=== PATIENT | female | born 1960 | race African-American/Black ===

== ENCOUNTER 2017-01-20 11:31 | Emergency (ER) | payer SELFPAY ==
[~2017-01-20] VITALS: Ht 160 cm; Wt 127.0 kg
[2017-01-20] MEDS ORDERED: LOSA1TAB16 PO (12:31)
--- NOTE | 2017-01-20 12:31 | PHYS DOC ---
Past Medical History Past Medical History: High Cholesterol, Hypertension, Sciatica Past Surgical History: Additional Past Surgical Histo: fibroid removed from breast Additional Information: 6 cigarettes daily Alcohol Use: None Drug Use: None Adult General Chief Complaint Chief Complaint: MEDICATION REFILL [facility] HPI Patient is a 57 year old female who presents for refill of her blood pressure medication. She has been out of her Hyzaar for 4 days. She has been unable to schedule an appointment with her PCP due to a busy work schedule. She denies any chest pain, shortness of breath, headache, weakness, or numbness. Upon arrival to the emergency department today her blood pressure is 162/94 and was 141/75 on recheck. Her PCP is Luz Elena APRN. Review of Systems Review of Systems Constitutional: Denies fever or chills. [] Eyes: Denies change in visual acuity, redness, or eye pain. [] HENT: Denies ear pain, nasal congestion or sore throat. [] Respiratory: Denies cough or shortness of breath. [] Cardiovascular: Denies chest pain, palpitations or edema. [] GI: Denies abdominal pain, nausea, vomiting, bloody stools or diarrhea. [] : Denies dysuria, hematuria or urinary frequency. [] Musculoskeletal: Denies back pain or joint pain. [] Integument: Denies rash or skin lesions. [] Neurologic: Denies headache, focal weakness or sensory changes. [] Endocrine: Denies polyuria or polydipsia. [] Psych: Denies anxiety or depression. [] All systems reviewed and negative unless otherwise stated in the HPI. Allergies Allergies Allergies Coded Allergies Type Severity Reaction Last Updated Verified No Known Drug Allergies 12/28/15 No Physical Exam Physical Exam Constitutional: Well developed, well nourished, no acute distress, non-toxic appearance. [] HENT: Normocephalic, atraumatic, oropharynx moist. [] Eyes: PERRLA, EOMI, conjunctiva normal, no discharge. [] Neck: Normal range of motion, no tenderness, supple, no stridor. [] Cardiovascular: Heart rate regular rhythm, no murmur. [] Lungs & Thorax: Bilateral breath sounds clear to auscultation without wheezes, rales, or rhonchi. [] Skin: Warm, dry, no erythema, no rash. [] Extremities: No tenderness, ROM intact, no edema. Distal pulses equal bilaterally. [] Neurologic: Alert and oriented X 3, normal motor function, normal sensory function, no focal deficits noted. CN II-XII grossly intact. Psychologic: Affect normal, judgement normal, mood normal. [] Current Patient Data Vital Signs Vital Signs Date Time Temp Pulse Resp B/P Pulse Ox O2 Delivery O2 Flow Rate FiO2 01/20/17 12:36 141/75 01/20/17 11:40 98.1 92 20 95 98.1 EKG EKG [] Radiology/Procedures Radiology/Procedures [] Course & Med Decision Making Course & Med Decision Making Pertinent Labs and Imaging studies reviewed. (See chart for details) [] Dragon Disclaimer Dragon Disclaimer This electronic medical record was generated, in whole or in part, using a voice recognition dictation system. Departure Departure Impression: Primary Impression: Medication refill Disposition: HOME, SELF-CARE Condition: STABLE Referrals: LUZ ELENA APRN (PCP) Patient Instructions: Medication Refill, Emergency Department Additional Instructions: You have been given a prescription for 1 month of your blood pressure medication. Please schedule an appointment with your primary care provider as soon as possible for a refill. Return to the emergency department if you have any new or concerning symptoms. Scripts Losartan/Hydrochlorothiazide (Losartan-Hctz 50-12.5 Mg Tab)1 Each Tablet1 Tab PO BID 30 Days Prov:BLANCA GUERRA 01/20/17 BLANCA GUERRA Jan 20, 2017 12:31
[2017-01-20 12:36] VITALS: BP 141/75
== END 2017-01-20 12:38 | disposition home or self-care (01) ==
LOC: ER 11:31
DX: Z76.0 Encounter for issue of repeat prescription (principal); I10 Essential (primary) hypertension; E78.00 Pure hypercholesterolemia, unspecified; F17.200 Nicotine dependence, unspecified, uncomplicated
CPT/HCPCS: 99283

== ENCOUNTER 2017-06-03 10:50 | Emergency (ER) | payer SELFPAY ==
[~2017-06-03] VITALS: Ht 160 cm; Wt 122.5 kg
[~2017-06-03 10:50] MED LIST: LOSA1TAB16 PO
[2017-06-03 11:01] VITALS: BP 172/84
[2017-06-03] MEDS ORDERED: LOSA1TAB16 PO (11:18)
--- NOTE | 2017-06-03 11:18 | PHYS DOC ---
Past Medical History Past Medical History: High Cholesterol, Hypertension, Sciatica Past Surgical History: , Other Additional Past Surgical Histo: fibroid removed from breast Alcohol Use: None Drug Use: None Adult General Chief Complaint Chief Complaint: MEDICATION REFILL HPI HPI Patient is a 57 year old female with history of hypertension and smoking who presents today requesting a refill of her blood pressure medicine. Patient states she takes losartan/HCTZ. She ran out of the medication a couple days ago. She does have a PCP. She states she tried following up in the office and they wanted $300 just to be seen. She has no medical insurance. Patient denies any chest pain or shortness of breath. Denies any headache. Review of Systems Review of Systems Constitutional: Denies fever or chills [] Eyes: Denies change in visual acuity, redness, or eye pain [] HENT: Denies nasal congestion or sore throat [] Respiratory: Denies cough or shortness of breath [] Cardiovascular: Medication refill GI: Denies abdominal pain, nausea, vomiting, bloody stools or diarrhea [] : Denies dysuria or hematuria [] Musculoskeletal: Denies back pain or joint pain [] Integument: Denies rash or skin lesions [] Neurologic: Denies headache, focal weakness or sensory changes [] Endocrine: Denies polyuria or polydipsia [] Allergies Allergies Allergies Coded Allergies Type Severity Reaction Last Updated Verified No Known Drug Allergies 12/28/15 No Physical Exam Physical Exam Constitutional: Well developed, well nourished, no acute distress, non-toxic appearance. [] HENT: Normocephalic, atraumatic, bilateral external ears normal, oropharynx moist, no oral exudates, nose normal. [] Eyes: PERRLA, EOMI, conjunctiva normal, no discharge. [] Neck: Normal range of motion, no tenderness, supple, no stridor. [] Cardiovascular:Heart rate regular rhythm, no murmur [] Lungs & Thorax: Bilateral breath sounds clear to auscultation [] Abdomen: Bowel sounds normal, soft, no tenderness, no masses, no pulsatile masses. [] Skin: Warm, dry, no erythema, no rash. [] Back: No tenderness, no CVA tenderness. [] Extremities: No tenderness, no cyanosis, no clubbing, ROM intact, no edema. [] Neurologic: Alert and oriented X 3, normal motor function, normal sensory function, no focal deficits noted. [] Psychologic: Affect normal, judgement normal, mood normal. [] Current Patient Data Vital Signs Vital Signs Date Time Temp Pulse Resp B/P (MAP) Pulse Ox O2 Delivery O2 Flow Rate FiO2 06/03/17 11:01 98.3 77 20 95 Room Air 98.3 EKG EKG [] Radiology/Procedures Radiology/Procedures [] Course & Med Decision Making Course & Med Decision Making Pertinent Labs and Imaging studies reviewed. (See chart for details) Patient is in the ED for medication refill for losartan/HCTZ. Blood pressure is 172/83 , patient has no cardiac or neurological symptoms. She has a PCP but not able to follow-up because they asked for $300 upfront. She has no medical insurance. She was given a refill and provided a clinic list. I talked to patient about smoking cessation. We agreed she is going to cut back on her smoking. Dragon Disclaimer Dragon Disclaimer This electronic medical record was generated, in whole or in part, using a voice recognition dictation system. Departure Departure Impression: Primary Impression: Medication refill Additional Impressions: Hypertension Smoking addiction Disposition: HOME, SELF-CARE Condition: STABLE Referrals: LUISITO ELENA APRN (PCP) Follow-up with your doctor or doctor from the list provided Patient Instructions: Hypertension, Smoking Cessation Additional Instructions: You were seen for refill of your blood pressure medication. Take them as prescribed. Kindly follow-up with your primary care doctor from the list provided as soon as you can. Scripts Losartan/Hydrochlorothiazide (LOSARTAN-HCTZ 50-12.5 MG TAB) 1 Each Tablet 1 TAB PO DAILY, #90 TAB 1 Refill Prov: JASMIN BERUMEN APRN 06/03/17 Problem Qualifiers Additional Impressions: Hypertension Hypertension type: unspecified secondary hypertension Qualified Codes: I15.9 - Secondary hypertension, unspecified ZENIAKhalifJASMIN APRN Jun 03, 2017 11:18
== END 2017-06-03 11:25 | disposition home or self-care (01) ==
LOC: ER 10:50
DX: Z76.0 Encounter for issue of repeat prescription (principal); I10 Essential (primary) hypertension; E78.00 Pure hypercholesterolemia, unspecified; F17.200 Nicotine dependence, unspecified, uncomplicated
CPT/HCPCS: 99283

== ENCOUNTER 2018-07-24 10:45 | Emergency (ER) | payer SELFPAY ==
[~2018-07-24] VITALS: Ht 160 cm; Wt 117.9 kg
[~2018-07-24 10:45] MED LIST changes: -LOSA1TAB16 PO; +LOSA1TAB19 PO
[2018-07-24 10:50] VITALS: BP 188/89
[2018-07-24] MEDS ORDERED: LOSA1TAB19 PO (12:00)
--- NOTE | 2018-07-24 12:00 | PHYS DOC ---
Past Medical History Past Medical History: High Cholesterol, Hypertension, Sciatica Past Surgical History: , Other Additional Past Surgical Histo: fibroid removed from breast Alcohol Use: None Drug Use: None General Pediatric Assessment History of Present Illness History of Present Illness Patient is a female who presents with request for medication refill. Patient states she has history of hypertension and ran out of her losartan/HCTZ. 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 Patient denies any symptoms. Historian was the patient and mother []. Review of Systems Review of Systems Constitutional: Denies fever or chills [] Eyes: Denies change in visual acuity, redness, or eye pain [] HENT: Denies nasal congestion or sore throat [] Respiratory: Denies cough or shortness of breath [] Cardiovascular: Blood pressure medication refill GI: Denies abdominal pain, nausea, vomiting, bloody stools or diarrhea [] : Denies dysuria or hematuria [] Musculoskeletal: Denies back pain or joint pain [] Integument: Denies rash or skin lesions [] Neurologic: Denies headache, focal weakness or sensory changes [] All other systems were reviewed and found to be within normal limits, except as documented in this note. Allergies Allergies Allergies Coded Allergies Type Severity Reaction Last Updated Verified No Known Drug Allergies 12/28/15 No Physical Exam Physical Exam Constitutional: Well developed, well nourished, no acute distress, non-toxic appearance, positive interaction, playful. [] HENT: Normocephalic, atraumatic, bilateral external ears normal, oropharynx moist, no oral exudates, nose normal. [] Eyes: PERRLA, conjunctiva normal, no discharge. [] Neck: Normal range of motion, no tenderness, supple, no stridor. [] Cardiovascular: Normal heart rate, normal rhythm, no murmurs, no rubs, no gallops. [] Thorax and Lungs: Normal breath sounds, no respiratory distress, no wheezing, no chest tenderness, no retractions, no accessory muscle use. [] Abdomen: Bowel sounds normal, soft, no tenderness, no masses [] Skin: Warm, dry, no erythema, no rash. [] Back: No tenderness, no CVA tenderness. [] Extremities: Intact distal pulses, no tenderness, no cyanosis, ROM intact, no edema, no deformities. [] Neurologic: Alert and interactive, normal motor function, normal sensory function, no focal deficits noted. [] Vital Signs Vital Signs Date Time Temp Pulse Resp B/P (MAP) Pulse Ox O2 Delivery O2 Flow Rate FiO2 07/24/18 10:50 98.1 80 16 188/89 (122) 94 Room Air 98.1 Radiology/Procedures Radiology/Procedures [] Course & Med Decision Making Course & Med Decision Making Pertinent Labs and Imaging studies reviewed. (See chart for details) This is a 58-year-old female patient presenting to the ED today with request for medication refill losartan/HCTZ for her BP. See history of present illness. Prescription given. He should follow-up with her own PCP as soon as she can get her medical insurance establish Dragon Disclaimer Dragon Disclaimer This electronic medical record was generated, in whole or in part, using a voice recognition dictation system. Departure Departure Impression: Primary Impression: Medication refill Additional Impression: Hypertension Disposition: 01 HOME, SELF-CARE Condition: STABLE Referrals: LUISITO ELENA APRN (PCP) follow up as soon as you can Patient Instructions: Hypertension, [id number] Additional Instructions: We refilled your blood pressure medications, contact your primary care doctor and follow-up as soon as possible. Scripts Losartan/Hydrochlorothiazide (LOSARTAN-HCTZ 50-12.5 MG TAB) 1 Each Tablet 1 TAB PO DAILY, #90 TAB 1 Refill Prov: JASMIN BERUMEN APRN 07/24/18 Problem Qualifiers Additional Impression: Hypertension Hypertension type: unspecified Qualified Codes: I10 - Essential (primary) hypertension JASMIN BERUMEN APRN Jul 24, 2018 12:00
== END 2018-07-24 12:00 | disposition home or self-care (01) ==
LOC: ER 10:45
DX: I10 Essential (primary) hypertension (principal); E78.00 Pure hypercholesterolemia, unspecified; Z98.890 Other specified postprocedural states
CPT/HCPCS: 99283

== ENCOUNTER 2019-04-03 16:23 | Emergency (ER) | payer MEDICAID ==
[~2019-04-03] VITALS: Ht 160 cm; Wt 129.3 kg
[2019-04-03 16:58] VITALS: BP 163/79
[2019-04-03] MEDS ORDERED: HYDR-3164 PO (17:00)
[2019-04-03] MEDS ORDERED: DICL50TA4 PO (17:00)
[2019-04-03] MEDS ORDERED: KETOROLAC 60 MG/2 ML VIAL. IM ONE (17:00)
[2019-04-03] MEDS ORDERED: diazePAM 5 MG TABLET PO ONE (17:00)
[2019-04-03] MEDS ORDERED: CYCL10TA2 PO (17:00)
[2019-04-03] MEDS ORDERED: MORPHINE SULFATE 10 MG/ML VIAL. IM ONE (17:00)
--- NOTE | 2019-04-03 17:01 | PHYS DOC ---
Past Medical History Past Medical History: High Cholesterol, Hypertension, Sciatica Past Surgical History: , Other Additional Past Surgical Histo: fibroid removed from breast Alcohol Use: None Drug Use: None Adult General Chief Complaint Chief Complaint: LOWER EXT PAIN HPI HPI Patient is a 59 year old female with history of hypertension, high cholesterol, sciatica, who presents to the ED today complaining of 10 out of 10 exacerbation of sciatic nerve pain. Patient describes the pain as sharp and intermittent worse on weight-bearing, she states the pain is radiating to the left lower extremity. She states occasionally her toes get numb. She states the toes. The numbness is not new. She states she's not had a flareup of her sciatica for years. Denies any loss of bowel bladder function. She is also complaining of bilateral knee pain. She states her knees keep popping in and out though this has been going on for a while. Denies any known injury. She states she believes she has a bruise to the left knee. No bruise was noted on physical exam. Review of Systems Review of Systems Constitutional: Denies fever or chills [] : Denies dysuria or hematuria [] Musculoskeletal: Reports left low back pain radiating to the left lower extremity, reports bilateral knee pain and pain. Integument: Denies rash or skin lesions [] Neurologic: Denies headache, focal weakness or sensory changes [] All other systems were reviewed and found to be within normal limits, except as documented in this note. Current Medications Current Medications Current Medications Medications (Trade) Dose Ordered Sig/Alfie Start Time Stop Time Status Last Admin Dose Admin Diazepam (Valium) 5 mg 1X ONCE 04/03/19 17:00 04/03/19 17:01 UNV Ketorolac Tromethamine (Toradol Im) 60 mg 1X ONCE 04/03/19 17:00 04/03/19 17:01 UNV Morphine Sulfate (Morphine Sulfate) 5 mg 1X ONCE 04/03/19 17:00 04/03/19 17:01 UNV Allergies Allergies Allergies Coded Allergies Type Severity Reaction Last Updated Verified No Known Drug Allergies 12/28/15 No Physical Exam Physical Exam Constitutional: Well developed, well nourished, no acute distress, non-toxic appearance. [] Abdomen: Bowel sounds normal, soft, no tenderness, no masses, no pulsatile masses. [] Skin: Warm, dry, no erythema, no rash. [] Back: Diffuse paraspinal muscle tenderness the left lumbar spine, no midline lumbar spine tenderness, no CVA tenderness. [] Extremities: No tenderness, no cyanosis, no clubbing, ROM intact, no edema. No bruising noted to bilateral knees. Neurologic: Alert and oriented X 3, normal motor function, normal sensory function, no focal deficits noted. [] Psychologic: Affect normal, judgement normal, mood normal. [] EKG EKG [] Radiology/Procedures Radiology/Procedures [] Course & Med Decision Making Course & Med Decision Making Pertinent Labs and Imaging studies reviewed. (See chart for details) This is a 59-year-old female patient presenting to the ED today with exacerbation of bilateral knee pain and sciatica. Patient is overweight. We discussed weight loss measures. Provided orthopedic doctor for follow-up for chronic knee pain. She has a PCP she'll follow-up for sciatic pain. She has no cauda equina syndrome symptoms. She has no injury. She was discharged to home. Dragon Disclaimer Dragon Disclaimer This electronic medical record was generated, in whole or in part, using a voice recognition dictation system. Departure Departure Impression: Primary Impression: Sciatica of left side Additional Impression: Chronic knee pain Disposition: HOME, SELF-CARE Condition: STABLE Referrals: LUISITO ELENA APRN (PCP) follow up in 1-2 weeks AMADOR GARVEY MD follow up in 2 weeks Patient Instructions: Sciatica with [facility] Additional Instructions: He was evaluated in the emergency room for pain. Try to ice and elevate the affected areas. Take the prescribed medications as ordered. Follow-up with your primary care doctor as well as the orthopedic doctor provided in 1-2 weeks. Scripts Diclofenac Sodium (DICLOFENAC SODIUM) 50 Mg Tablet. 1 TAB PO BID, #20 TAB 0 Refills Prov: JASMIN BERUMEN APRN 04/03/19 Cyclobenzaprine Hcl (CYCLOBENZAPRINE HCL) 10 Mg Tablet 1 TAB PO TID, #30 TAB Prov: JASMIN BERUMEN APRN 04/03/19 Hydrocodone/Apap 5-325 (NORCO 5-325 TABLET) 1 Each Tablet 1 TAB PO Q6HRS, #10 TAB Prov: JASMIN BERUMEN APRN 04/03/19 Problem Qualifiers Additional Impression: Chronic knee pain Laterality: bilateral Qualified Codes: M25.561 - Pain in right knee; M25.562 - Pain in left knee; G89.29 - Other chronic pain JASMIN BERUMEN APRN Apr 03, 2019 17:01
== END 2019-04-03 17:16 | disposition home or self-care (01) ==
LOC: ER 16:23
DX: M54.42 Lumbago with sciatica, left side (principal); G89.29 Other chronic pain; M25.561 Pain in right knee; M25.562 Pain in left knee; I10 Essential (primary) hypertension; E78.00 Pure hypercholesterolemia, unspecified
CPT/HCPCS: 96372; 99284; J1885; J2270

== ENCOUNTER 2019-09-15 16:30 | Emergency (ER) | payer SELFPAY ==
[~2019-09-15] VITALS: Ht 160 cm; Wt 122.5 kg
[~2019-09-15 16:30] MED LIST changes: +CYCL10TA2 PO; +DICL50TA4 PO; +HYDR-3164 PO; +NAPR-695 PO
[2019-09-15] MEDS ORDERED: NAPROXEN 500 MG TABLET PO STA (17:19)
[2019-09-15] MEDS ORDERED: HYDROcodone/APAP 5/325MG 1 TAB TABLET PO ONE (17:30)
[2019-09-15] MEDS ORDERED: CYCLOBENZAPRINE 10 MG TABLET. PO ONE (17:30)
[2019-09-15] MEDS ORDERED: METH4TAB2 PO (17:50)
[2019-09-15] MEDS ORDERED: GABA300C18 PO (17:50)
[2019-09-15] MEDS ORDERED: CYCL10TA2 PO (17:50)
[2019-09-15] MEDS ORDERED: HYDR-3164 PO (17:50)
[2019-09-15] MEDS ORDERED: DICL50TA2 PO (17:50)
--- NOTE | 2019-09-15 17:50 | PHYS DOC ---
Past Medical History Past Medical History: Arthritis, High Cholesterol, Hypertension, Sciatica Past Surgical History: , Other Additional Past Surgical Histo: fibroid removed from breast Alcohol Use: None Drug Use: None Adult General Chief Complaint Chief Complaint: LOWER BACK PAIN OR INJURY HPI HPI Patient is a 59 year old female with history of hypertension, high cholesterol, sciatica, who presents to the ED today complaining of mild to moderate bilateral low back pain radiating to bilateral lower extremities that began a week ago. Patient denies any trauma. States the pain is worse when she is sitting on her buttocks. She states she's been trying [id number] remedies with no relief. Review of Systems Review of Systems Constitutional: Denies fever or chills [] GI: Denies abdominal pain, nausea, vomiting, bloody stools or diarrhea [] : Denies dysuria or hematuria [] Musculoskeletal: Reports low back pain Integument: Denies rash or skin lesions [] Neurologic: Denies headache, focal weakness or sensory changes [] All other systems were reviewed and found to be within normal limits, except as documented in this note. Current Medications Current Medications Current Medications Medications (Trade) Dose Ordered Sig/Alfie Start Time Stop Time Status Last Admin Dose Admin Acetaminophen/ Hydrocodone Bitart (Lortab 5/325) 2 tab 1X ONCE 09/15/19 17:30 09/15/19 17:31 DC 09/15/19 17:30 2 TAB Cyclobenzaprine HCl (Flexeril) 10 mg 1X ONCE 09/15/19 17:30 09/15/19 17:31 DC 09/15/19 17:30 10 MG Naproxen (Naprosyn) 500 mg 1X STAT 09/15/19 17:19 09/15/19 17:21 DC 09/15/19 17:30 500 MG Allergies Allergies Allergies Coded Allergies Type Severity Reaction Last Updated Verified No Known Drug Allergies 12/28/15 No Physical Exam Physical Exam Constitutional: Well developed, well nourished, no acute distress, non-toxic appearance. [] Abdomen: Bowel sounds normal, soft, no tenderness, no masses, no pulsatile masses. [] Skin: Warm, dry, no erythema, no rash. [] Back: Patient unable to sit on her buttocks. Currently kneeling on the bed. Diffuse tenderness to bilateral lumbar spine, no midline lumbar spine Tenderness, no CVA tenderness. [] Extremities: No tenderness, no cyanosis, no clubbing, ROM intact, no edema. [] Neurologic: Alert and oriented X 3, normal motor function, normal sensory function, no focal deficits noted. [] Psychologic: Affect normal, judgement normal, mood normal. [] Current Patient Data Vital Signs Vital Signs Date Time Temp Pulse Resp B/P (MAP) Pulse Ox O2 Delivery O2 Flow Rate FiO2 09/15/19 16:59 98.0 93 18 169/77 (107) 96 Room Air 98.0 EKG EKG [] Radiology/Procedures Radiology/Procedures [] Course & Med Decision Making Course & Med Decision Making Pertinent Labs and Imaging studies reviewed. (See chart for details) This is a 59-year-old female patient presenting to the ED today with exacerbation of low back pain with sciatica. Patient was discharged to home. Follow-up with the PCP in 1-2 weeks. Dragon Disclaimer Dragon Disclaimer This electronic medical record was generated, in whole or in part, using a voice recognition dictation system. Departure Departure Impression: Primary Impression: Lumbago with sciatica, left side Additional Impression: Lumbago with sciatica, right side Disposition: HOME, SELF-CARE Condition: STABLE Referrals: LUISITO ELENA APRN (PCP) follow up next week Patient Instructions: Sciatica with [facility] Additional Instructions: You were evaluated in the emergency room for back pain with sciatica. Please follow-up with your primary care doctor in the course of next week. Scripts Diclofenac Potassium (DICLOFENAC POTASSIUM) 50 Mg Tablet 1 TAB PO BID, #20 TAB 1 Refill Prov: JASMIN BERUMEN APRN 09/15/19 Methylprednisolone (MEDROL) 4 Mg Tab.ds.pk 1 PKG PO UD, #1 PKG Prov: JASMIN BERUMEN APRN 09/15/19 Gabapentin (GABAPENTIN ) 300 Mg Capsule 300 MG PO TID for NEUROGENIC PAIN, #30 CAP Prov: JASMIN BERUMEN APRN 09/15/19 Hydrocodone/Apap 5-325 (NORCO 5-325 TABLET) 1 Each Tablet 1 TAB PO Q6HRS, #20 TAB Prov: JASMIN BERUMEN APRN 09/15/19 Cyclobenzaprine Hcl (CYCLOBENZAPRINE HCL) 10 Mg Tablet 1 TAB PO TID, #30 TAB Prov: MUTJASMIN LÓPEZ [employer] 09/15/19 Problem Qualifiers Primary Impression: Lumbago with sciatica, left side Chronicity: acute Back pain laterality: left Qualified Codes: M54.42 - Lumbago with sciatica, left side Additional Impression: Lumbago with sciatica, right side Chronicity: acute Back pain laterality: right Qualified Codes: M54.41 - Lumbago with sciatica, right side HANSJASMIN LÓPEZ MOT[employer] TE[employer]ER Sep 15, 2019 17:50
[2019-09-15 18:05] VITALS: BP 152/75
== END 2019-09-15 18:10 | disposition home or self-care (01) ==
LOC: ER 16:30
DX: M54.42 Lumbago with sciatica, left side (principal); M54.41 Lumbago with sciatica, right side; M19.90 Unspecified osteoarthritis, unspecified site; E78.00 Pure hypercholesterolemia, unspecified; I10 Essential (primary) hypertension; Z98.890 Other specified postprocedural states; Z90.89 Acquired absence of other organs
CPT/HCPCS: 99284

== ENCOUNTER 2019-10-08 16:41 | Emergency (ER) | payer SELFPAY ==
[~2019-10-08] VITALS: Ht 160 cm; Wt 127.0 kg
[~2019-10-08 16:41] MED LIST changes: +DICL50TA2 PO; +GABA300C18 PO; +METH4TAB2 PO
[2019-10-08 17:40] VITALS: BP 165/84
[2019-10-08] MEDS ORDERED: LOSA1TAB19 PO (18:33)
--- NOTE | 2019-10-08 18:36 | PHYS DOC ---
Past Medical History Past Medical History: Arthritis, High Cholesterol, Hypertension, Sciatica Past Surgical History: , Other Additional Past Surgical Histo: fibroid removed from breast Alcohol Use: None Drug Use: None Adult General Chief Complaint Chief Complaint: MEDICATION REFILL HPI HPI Patient is a 59 year old female who presents with been out of her losartan for the last 3 weeks. She states that her primary care provider moved to [place] and is too far for her to go. Patient denies chest pain, headache, dizziness, swelling, vision changes, abdominal pain, nausea, vomiting, shortness of air, numbness or tingling, weakness. She denies any pain. Review of Systems Review of Systems Constitutional: Denies fever or chills. Out of blood pressure medications. [] All other systems were reviewed and found to be within normal limits, except as documented in this note. Allergies Allergies Allergies Coded Allergies Type Severity Reaction Last Updated Verified No Known Drug Allergies 12/28/15 No Physical Exam Physical Exam Constitutional: Well developed, well nourished, no acute distress, non-toxic appearance. [] HENT: Normocephalic, atraumatic, bilateral external ears normal, oropharynx moist, no oral exudates, nose normal. [] Eyes: PERRLA, EOMI, conjunctiva normal, no discharge. [] Neck: Normal range of motion, no tenderness, supple, no stridor. [] Cardiovascular:Heart rate regular rhythm, no murmur [] Lungs & Thorax: Bilateral breath sounds clear to auscultation [] Abdomen: Bowel sounds normal, soft, no tenderness, no masses, no pulsatile masses. [] Skin: Warm, dry, no erythema, no rash. [] Back: No tenderness, no CVA tenderness. [] Extremities: No tenderness, no cyanosis, no clubbing, ROM intact, no edema. [] Neurologic: Alert and oriented X 3, normal motor function, normal sensory function, no focal deficits noted. [] Psychologic: Affect normal, judgement normal, mood normal. Normal Physical Exam[] EKG EKG [] Radiology/Procedures Radiology/Procedures [] Course & Med Decision Making Course & Med Decision Making Lungs are clear to auscultation all lobes. Patient's blood pressure is currently 151/84. No extremity swelling. Alert and oriented. Ambulatory with steady gait the patient uses a cane. PERRLA. Speaks in full clear sentences. Skin pink warm and dry. Patient states that she takes losartan 50/12.5mg daily. Patient is given a primary care pamphlet for [facility]. Chelsy Disclaimer Chelsy Disclaimer This electronic medical record was generated, in whole or in part, using a voice recognition dictation system. Departure Departure Impression: Primary Impression: Medication refill Disposition: HOME, SELF-CARE Condition: STABLE Referrals: LUISITO ELENA APRN (PCP) Patient Instructions: Medication Refill, Emergency Department Additional Instructions: Follow-up with a primary care provider seems possible. Take medications as p rescribed. Scripts Losartan/Hydrochlorothiazide (LOSARTAN-HCTZ 50-12.5 MG TAB) 1 Each Tablet 1 TAB PO DAILY, #30 TAB 0 Refills Prov: SOFIYA RILEY APRN 10/08/19 SOFIYA RILEY APRN Oct 08, 2019 18:36
== END 2019-10-08 18:55 | disposition home or self-care (01) ==
LOC: ER 16:41
DX: I10 Essential (primary) hypertension (principal); M19.90 Unspecified osteoarthritis, unspecified site; E78.00 Pure hypercholesterolemia, unspecified; Z98.890 Other specified postprocedural states; Z76.0 Encounter for issue of repeat prescription
CPT/HCPCS: 99283

== ENCOUNTER 2019-12-28 09:38 | Emergency (ER) | payer SELFPAY ==
[~2019-12-28] VITALS: Ht 160 cm; Wt 129.6 kg
--- NOTE | 2019-12-28 10:39 | PHYS DOC ---
Past Medical History Past Medical History: Arthritis, High Cholesterol, Hypertension, Sciatica (FAMILIA MASON APRN) Past Surgical History: , Other Additional Past Surgical Histo: fibroid removed from breast (FAMILIA MASON APRN) Smoking Status: Current Every Day Smoker Alcohol Use: None Drug Use: None (FAMILIA MASON APRN) Adult General Chief Complaint Chief Complaint: MEDICATION REFILL [facility] HPI Patient is a 59 year old female who presents for medication refill. Patient states she's been out of her losartan 12.5 mg blood pressure medicine for last week. Her blood pressures 150/82 on arrival. Patient states she is not gone to her doctor because her doctor moved from [place] to [place]. States that she needs to find a new doctor. Denies any other symptoms. Complete ROS were reviewed and found to be within normal limits, except as documented in the HPI (FAMILIA MASON APRN) Allergies Allergies Allergies Coded Allergies Type Severity Reaction Last Updated Verified No Known Drug Allergies 12/28/15 No (ARTIS OLIVAS MD) Physical Exam Physical Exam Constitutional: Well developed, well nourished, no acute distress, non-toxic appearance. [] HENT: Normocephalic, atraumatic, bilateral external ears normal, oropharynx moist, no oral exudates, nose normal. [] Neurologic: Alert and oriented X 3, normal motor function, normal sensory function, no focal deficits noted. [] Psychologic: Affect normal, judgement normal, mood normal. [] (FAMILIA MASON APRN) Current Patient Data Vital Signs Vital Signs Date Time Temp Pulse Resp B/P (MAP) Pulse Ox O2 Delivery O2 Flow Rate FiO2 12/28/19 10:21 98.3 88 22 150/82 (104) 95 Room Air 98.3 (ARTIS OLIVAS MD) EKG EKG [] (FAMILIA MASON APRN) Radiology/Procedures Radiology/Procedures [] (FAMILIA MASON APRN) Course & Med Decision Making Course & Med Decision Making Pertinent Labs and Imaging studies reviewed. (See chart for details) I had extensive discussion with this patient about the importance of finding a primary care doctor. I discussed the patient that because she has a doctor he's been taking care of of her. It is better medical care for that doctor to be the one to refill her prescription. I discussed with her that if that doctor is to far away that she should find a new primary care doctor. Patient states that she does not want to go see a primary care doctor and follow up. A medical screening exam was performed on this patient and the patient does not appear to be having a medical emergency. Her symptoms are not of sufficient severity and within reasonable medical probability it is unlikely the absence of immediate medical attention would result in placing the health of the individual (or, with respect to a woman, the health of the woman or her unborn child) in serious jeopardy, serious impairment to bodily functions, or serious dysfunction of any bodily organ or part. If , the patient is not in labor (FAMILIA MASON APRN) Course & Med Decision Making ER PHYSICIAN ATTENDING NOTE: I have personally seen and examined the patient, and agree with the history, physical exam, and plan, as documented by mid-level provider. Patient has no complaints at this time. She mainly requests a refill of her blood pressure medication, being in between primary care providers at this time. She has been out of her blood pressure medication for a week, has been on losartan/HCTZ 50-12.5 mg for 3 years. Patient will be given resources for local physicians. (ARTIS OLIVAS MD) Dragon Disclaimer Dragon Disclaimer This electronic medical record was generated, in whole or in part, using a voice recognition dictation system. (FAMILIA MASON APRN) Departure Departure Impression: Primary Impression: Encounter for medical screening examination Additional Impressions: Medication refill Hypertension Disposition: 01 HOME, SELF-CARE Condition: STABLE Referrals: NO PCP (PCP) Patient Instructions: Medication Refill, Emergency Department Additional Instructions: Thank you for visiting [facility]. We appreciate you trusting us with your care. If any additional problems come up don't hesitate to return to [facility]. Please follow up with your primary care provider so they can plan additional care if needed and know about the problem that you had. If symptoms worsen come back to the Emergency Department. Any concerning symptoms that start such as chest pain, shortness of air, weakness or numbness on one side of the body, running high fevers or any other concerning symptoms return to the ER. Scripts Losartan/Hydrochlorothiazide (LOSARTAN-HCTZ 50-12.5 MG TAB) 1 Each Tablet 1 TAB PO DAILY, #30 TAB 1 Refill Prov: ARTIS OLIVAS MD 12/28/19 Problem Qualifiers FAMILIA MASON APRN Dec 28, 2019 10:39 ARTIS OLIVAS MD Dec 28, 2019 11:41
[2019-12-28] MEDS ORDERED: LOSA1TAB19 PO (11:40)
[2019-12-28 12:00] VITALS: BP 163/93
== END 2019-12-28 11:57 | disposition home or self-care (01) ==
LOC: ER 09:38
DX: I10 Essential (primary) hypertension (principal); M19.90 Unspecified osteoarthritis, unspecified site; E78.00 Pure hypercholesterolemia, unspecified; F17.200 Nicotine dependence, unspecified, uncomplicated; Z98.890 Other specified postprocedural states; Z76.0 Encounter for issue of repeat prescription
CPT/HCPCS: 99281

== ENCOUNTER → 2021-10-11 | Outpatient (CLI) | payer OTHER ==
[~2021-10-11] MED LIST changes: +CYCL10TA19 PO; -CYCL10TA2 PO
--- NOTE | 2021-10-11 17:16 | RAD ---
XR LUMBAR SPINE 2-3V History: Reason: LOW BACK PAIN. / Spl. Instructions: / History: Technique: 2 views lumbar spine. Comparison: None. Findings: Grade 1 anterolisthesis L4 on L5. Normal vertebral body height. No acute fracture. Moderate degenerat miriam disc changes most prominent L4-5 and L5-S1. Facet arthropathy. Vascular calcifications. Impression: 1. Moderate lumbar spondylosis. 2. Grade 1 anterolisthesis L4 on L5. Electronically signed by: Jacinto Ahumada DO (10/11/2021 5:14 PM) [id number]
== END ==
LOC: RAD 09:27
PROVIDERS: ATTEND Anesthesiology Pain Medicine
DX: Z02.71 Encounter for disability determination (principal); M47.817 Spondylosis without myelopathy or radiculopathy, lumbosacral region; M43.16 Spondylolisthesis, lumbar region; M48.8X6 Other specified spondylopathies, lumbar region
CPT/HCPCS: 72100